=== PATIENT | male | born 1935 | race African-American/Black ===

== ENCOUNTER 2019-01-03 06:50 | Inpatient (IN) ==
[2019-01-03] MEDS ORDERED: SODIUM CHLORIDE 0.9% 250 ML IV ONE (09:33)
[2019-01-03 10:16] LABS: Basophils % 0.8 % (0.0-0.8); Eosinophils # 0.1 10*3/uL (0.0-0.87); Hematocrit 29.7 VOL% (42.0-52.0); Hemoglobin 9.6 GM/DL (14.0-18.0); Immature Granulocytes % 0.4 %; Immature Granulocytes Absolute 0.02 #; Lymphocytes # 1.8 10*3/uL (1.4-4.0); Lymphocytes % 35.8 % (21.2-54.2); Mean Corpuscular HGB Conc 32.3 GM/DL (32-36); Mean Corpuscular Volume 103.5 FL (87-102); Mean Platelet Volume 9.4 FL (9.6-12.0); Monocytes % 11.7 % (1.7-12.7); Neutrophils % 50.3 % (38.7-73.9); Platelet Count 120 T/CUMM (130-400); Red Blood Count 2.87 MC/CUMM (3.8-5.5); Red Cell Distribution Width 12.7 % (9.3-17.3); White Blood Count 5.1 T/CUMM (4-12)
[2019-01-03 11:17] LABS: Albumin 2.8 G/DL (3.4-5.0); Calcium 8.3 MG/DL (8.5-10.1); Osmolality,Calculated 284.1 MOS/KG (273-304); Total Protein 5.6 G/DL (6.4-8.3)
[2019-01-03] MEDS ORDERED: ACETAMINOPHEN 325 MG TABLET PO PRN (11:24)
[2019-01-03] MEDS ORDERED: ONDANSETRON 4 MG/2 ML VIAL IV PRN (11:24)
[2019-01-03] MEDS ORDERED: DEXT 5% NACL 0.45% KCL 20 MEQ 20 MEQ/1,000 ML BAG IV SCH (11:30)
[2019-01-03] MEDS ORDERED: EPOETIN ALFA 2,000 UNIT/1 ML VIAL IV ONE (12:18)
[2019-01-03] MEDS: SODIUM CHLORIDE 0.9% 1,000 ML IV SCH ×2 (12:23→20:27)
[2019-01-03] MEDS ORDERED: SODIUM CHLORIDE 0.9% 1,000 ML IV SCH (12:30)
[2019-01-03] MEDS: MULTIVITAMIN (CENTRUM) TABLET PO SCH (12:31)
[2019-01-03] MEDS: amLODIPine 5 MG TABLET PO SCH (17:22)
[2019-01-03 18:01] LABS: Hematocrit 29.7 VOL% (42.0-52.0); Hemoglobin 9.9 GM/DL (14.0-18.0)
[2019-01-03] MEDS ORDERED: DOCUSATE SODIUM 100 MG CAPSULE PO SCH (21:00)
[2019-01-03] MEDS ORDERED: DOCUSATE CALCIUM 240 MG CAPSULE PO SCH (21:00)
[2019-01-03] MEDS ORDERED: TAMSULOSIN 0.4 MG CAPSULE PO SCH (21:00)
[2019-01-03 22:56] LABS: Hematocrit 28.1 VOL% (42.0-52.0); Hemoglobin 9.4 GM/DL (14.0-18.0)
[2019-01-04] MEDS: SODIUM CHLORIDE 0.9% 1,000 ML IV SCH ×2 (05:08→13:01)
[2019-01-04 06:03] LABS: Calcium 8.5 MG/DL (8.5-10.1); Osmolality,Calculated 272.7 MOS/KG (273-304)
[2019-01-04] MEDS: amLODIPine 5 MG TABLET PO SCH (08:31)
[2019-01-04] MEDS: MULTIVITAMIN (CENTRUM) TABLET PO SCH (08:31)
[2019-01-04] MEDS: TAMSULOSIN 0.4 MG CAPSULE PO SCH ×2 (11:48→21:33)
[2019-01-04] MEDS: DOCUSATE SODIUM 100 MG CAPSULE PO SCH ×2 (11:48→21:33)
[2019-01-04] MEDS: FINASTERIDE 5 MG TABLET PO SCH (11:48)
[2019-01-05] MEDS: TAMSULOSIN 0.4 MG CAPSULE PO SCH ×2 (08:17→21:06)
[2019-01-05] MEDS: amLODIPine 5 MG TABLET PO SCH (08:17)
[2019-01-05] MEDS: FINASTERIDE 5 MG TABLET PO SCH (08:17)
[2019-01-05] MEDS: DOCUSATE SODIUM 100 MG CAPSULE PO SCH ×2 (08:17→21:06)
[2019-01-05] MEDS: MULTIVITAMIN (CENTRUM) TABLET PO SCH (08:18)
[2019-01-05] MEDS: SODIUM CHLORIDE 0.9% 1,000 ML IV SCH (11:55)
[2019-01-06 05:40] LABS: Basophils % 0.3 % (0.0-0.8); Eosinophils # 0.1 10*3/uL (0.0-0.87); Eosinophils % 1.6 % (0.00-10.9); Hematocrit 25.7 VOL% (42.0-52.0); Hemoglobin 8.7 GM/DL (14.0-18.0); Immature Granulocytes % 0.3 %; Immature Granulocytes Absolute 0.03 #; Lymphocytes # 1.4 10*3/uL (1.4-4.0); Lymphocytes % 15.3 % (21.2-54.2); Mean Corpuscular HGB Conc 33.9 GM/DL (32-36); Mean Platelet Volume 10.5 FL (9.6-12.0); Neutrophils % 69.5 % (38.7-73.9); Platelet Count 126 T/CUMM (130-400); Red Blood Count 2.57 MC/CUMM (3.8-5.5); White Blood Count 8.9 T/CUMM (4-12)
[2019-01-06] MEDS: DOCUSATE SODIUM 100 MG CAPSULE PO SCH (09:37)
[2019-01-06] MEDS: MULTIVITAMIN (CENTRUM) TABLET PO SCH (09:38)
[2019-01-06] MEDS: TAMSULOSIN 0.4 MG CAPSULE PO SCH (09:38)
[2019-01-06] MEDS: amLODIPine 5 MG TABLET PO SCH (09:38)
[2019-01-06] MEDS: FINASTERIDE 5 MG TABLET PO SCH (09:38)
[2019-01-06] MEDS: SODIUM CHLORIDE 0.9% 1,000 ML IV SCH (10:46)
[2019-01-06 13:21] VITALS: BP 144/90
== END 2019-01-06 14:17 | disposition home or self-care (01) | DRG 395 ==
LOC: N.5E → SUATTDRO 08:55 → N.CC 09:57 → SUATTDRO 11:24 → N.5E 01-04 13:02
PROVIDERS: ADMIT Internal Medicine; ATTEND Internal Medicine